=== PATIENT | male | born 1965 | race African-American/Black ===

== ENCOUNTER → 2018-05-08 | Outpatient (CLI) | payer OTHER ==
[~2018-05-08] MED LIST: IOHEXOL 300 MG/ML 100ML VIAL. IV ONE
--- NOTE | 2018-05-08 12:25 | RAD ---
CT HEAD without and with IV contrast INDICATION: PARESTHESIA OF SKIN, UPPER LIMB COMPARISON: None Available. Exposure: One or more of the following individualized dose reduction techniques were utilized for this examination: 1. Automated exposure control 2. Adjustment of the mA and/or kV according to patient size 3. Use of iterative reconstruction technique TECHNIQUE: 5 mm contiguous axial images were obtained from the skull base to the vertex without and with IV contrast FINDINGS: No abnormal attenuation within the brain parenchyma. No evidence of acute intracranial hemorrhage. No extra-axial fluid collections. No mass effect or midline shift. Ventricular size is appropriate. Basal cisterns are patent. No fractures identified.Westbrook-white differentiation is preserved.Globes and orbits are within normal limits. Paranasal sinuses and mastoid air cells are clear. No evidence of enhancing lesion identified. IMPRESSION: No acute intracranial findings. If symptoms persist consider MRI if clinically feasible. Electronically signed by: Landon Grant MD (05/08/2018 12:20 PM) [id number]
== END | disposition home or self-care (01) ==
LOC: CT 10:59
PROVIDERS: ATTEND Pediatrics
DX: R20.2 Paresthesia of skin (principal); I10 Essential (primary) hypertension; Z87.891 Personal history of nicotine dependence
CPT/HCPCS: 70470; Q9967

== ENCOUNTER 2019-02-19 10:28 | Emergency (ER) | payer MEDICAID, OTHER ==
[~2019-02-19] VITALS: Ht 165.1 cm; Wt 73.5 kg
[2019-02-19 11:32] VITALS: BP 149/92
--- NOTE | 2019-02-19 12:11 | PHYS DOC ---
Adult General Chief Complaint Chief Complaint: SKIN RASH/ABSCESS HPI HPI Patient is a 54 year old male who presents with a pruritic rash for 3 weeks. He states he has tried to use OTC medicines with no relief. Patient denies any fever. Review of Systems Review of Systems Constitutional: Denies fever or chills [] : Denies dysuria or hematuria [] Musculoskeletal: Denies back pain or joint pain [] Integument: Reports rash Neurologic: Denies headache, focal weakness or sensory changes [] All other systems were reviewed and found to be within normal limits, except as documented in this note. Allergies Allergies Allergies Coded Allergies Type Severity Reaction Last Updated Verified No Known Drug Allergies 05/08/18 No Physical Exam Physical Exam Constitutional: Well developed, well nourished, no acute distress, non-toxic appearance. [] Skin: Warm, moderate amount of excoriated rash in patient's bilateral upper extremities, similar rash on the face and lower extremities. Back: No tenderness, no CVA tenderness. [] Extremities: No tenderness, no cyanosis, no clubbing, ROM intact, no edema. [] Neurologic: Alert and oriented X 3, normal motor function, normal sensory function, no focal deficits noted. [] Psychologic: Affect normal, judgement normal, mood normal. [] EKG EKG [] Radiology/Procedures Radiology/Procedures [] Course & Med Decision Making Course & Med Decision Making Pertinent Labs and Imaging studies reviewed. (See chart for details) This is a 54-year-old male patient presenting to the ED today with excoriated contact dermatitis type rash most likely eczema. Patient was discharged with triamcinolone cream with Eucerin. Also given Medrol Dosepak and hydroxyzine. Follow-up with tax specialist provided in 1-2 weeks Dragon Disclaimer Dragon Disclaimer This electronic medical record was generated, in whole or in part, using a voice recognition dictation system. Departure Departure Impression: Primary Impression: Contact dermatitis and eczema Disposition: 01 HOME, SELF-CARE Condition: STABLE Referrals: RAMONA DUPREE MD (PCP) LUCÍA MERCADO MD follow up in 1-2 weeks Patient Instructions: Eczema Additional Instructions: You were evaluated in the emergency room for a rash suspicious of contract dermatitis eczema. Follow-up with the tax specialist provided in 1-2 weeks. Scripts Triamcinolone Acetonide (TRIAMCINOLONE ACETONIDE 0.1% OINT) 15 Gm Oint...g. 1 JONAH TP BID for WOUND CARE, #1 TUBE MIX WITH EUCERIN DIRECTED BY PHYSICIAN Prov: VLAD OLIVAS APRN 02/19/19 Hydroxyzine Hcl (HYDROXYZINE HCL) 25 Mg Tablet 1 TAB PO TID, #90 TAB 0 Refills Prov: VLAD OLIVAS APRN 02/19/19 Methylprednisolone (MEDROL) 4 Mg Tab.ds.pk 1 PKG PO UD, #1 PKG Prov: VLAD OLIVAS APRN 02/19/19 VLAD OLIVAS APRN Feb 19, 2019 12:11
[2019-02-19] MEDS ORDERED: METH4TAB2 PO (12:16)
[2019-02-19] MEDS ORDERED: TRIA15OI TP (12:16)
[2019-02-19] MEDS ORDERED: HYDR25TA PO (12:16)
== END 2019-02-19 12:26 | disposition home or self-care (01) ==
LOC: ER 10:28
DX: L25.9 Unspecified contact dermatitis, unspecified cause (principal)
CPT/HCPCS: 99283